=== PATIENT | female | born 1950 | race Caucasian/White ===

== ENCOUNTER → 2017-01-09 | Outpatient (CLI) | payer MEDICARE, BC ==
--- NOTE | 2017-01-10 08:22 | MM ---
Reason for exam: additional evaluation requested from prior study. Last mammogram was performed 4 years and 5 months ago. History: Patient is postmenopausal. Family history of breast cancer in aunt at age 60. Benign left US cyst aspiration of the left breast, July 27, 2006. Taking estrogen for 8 years 5 months beginning at age 50. Physical Findings: Nurse did not find any significant physical abnormalities on exam. MG 3D Diag Mammo W/Cad PASHA Bilateral CC and MLO view(s) were taken. Prior study comparison: July 25, 2012, CAD bilateral diagnostic mammogram. December 30, 2008, bilateral diagnostic digital mammog. The breast tissue is heterogeneously dense. This may lower the sensitivity of mammography. Finding: There are typically benign calcifications in both breasts. Previous mammotome biopsy in the left breast. No significant changes in finding since July 25, 2012 and December 30, 2008. These results were verbally communicated with the patient and result sheet given to the patient on 01/09/17. ASSESSMENT: Benign, BI-RAD 2 RECOMMENDATION: Routine screening mammogram of both breasts in 1 year.
== END | disposition home or self-care (01) ==
LOC: RADMAMWWP 10:33
PROVIDERS: ATTEND Family Medicine
DX: N60.19 Diffuse cystic mastopathy of unspecified breast (principal); Z80.3 Family history of malignant neoplasm of breast; R92.1 Mammographic calcification found on diagnostic imaging of breast
CPT/HCPCS: G0204; G0279

== ENCOUNTER 2017-01-26 11:38 | Emergency (ER) | payer MEDICARE, BC ==
[2017-01-26 11:45] VITALS: RESP 16
[2017-01-26] MEDS ORDERED: RX INFO: IV CONTRAST WAS GIVEN 1 EACH MISC MISCELLANE PRN (12:19)
[2017-01-26] MEDS ORDERED: SODIUM CHLORIDE 0.9% 1,000 ML IV STA (12:19)
--- NOTE | 2017-01-26 12:35 | XR ---
EXAMINATION TYPE: XR chest 2V DATE OF EXAM: 01/26/2017 12:28 PM COMPARISON: 02/21/2011 HISTORY: 66-year-old female with weakness TECHNIQUE: PA and lateral views FINDINGS: The cardiomediastinal silhouette, aorta, and pulmonary vasculature are within normal limits. Strandin g atelectasis in the lower lungs. Otherwise, lungs and pleural spaces are clear. IMPRESSION: Strandy basilar atelectasis. Otherwise, no acute cardiopulmonary process.
[2017-01-26 12:48] LABS: Basophils % (A) 0 %; CHCM 31.9; Eosinophils % (A) 1 %; HCT 46.9 % (34.0-46.0); HDW 2.74; HGB 14.6 gm/dL (11.4-16.0); Luc # (Auto) 0.14; Luc % (Auto) 2; Lymphocytes # (A) 1.7 k/uL (1.0-4.8); Lymphocytes % (A) 30 %; MCH 23.5 pg (25.0-35.0); MCV 75.8 fL (80.0-100.0); Mean Platelet Volume 7.2; Microcytosis Slight; Monocytes # (A) 0.3 k/uL (0-1.0); Monocytes % (A) 6 %; Neutrophils # (A) 3.5 k/uL (1.3-7.7); Neutrophils % (A) 61 %; RBC 6.19 m/uL (3.80-5.40); RDW 15.8 % (11.5-15.5); WBC 5.7 k/uL (3.8-10.6); WBC (Perox) 5.64
[2017-01-26 12:52] LABS: Appearance,Urine Clear (Clear); Bilirubin,Urine Negative (Negative); Glucose,Urine (UA) Negative (Negative); Ketones,Urine Negative (Negative); Leukocyte Esterase,Urine Negative (Negative); Nitrite,Urine Negative (Negative); PH, Urine 5.5 (5.0-8.0); Protein,Urine Negative (Negative); UA Billing (MACRO vs. MICRO) CHEM; Urobilinogen,Urine <2.0 mg/dL (<2.0)
[2017-01-26 13:02] LABS: Partial Thromboplastin Time 24.1 sec (22.0-30.0); Prothrombin Time 10.4 sec (9.0-12.0)
[2017-01-26 13:04] LABS: ALT 33 U/L (9-52); AST 22 U/L (14-36); Alkaline Phosphatase 134 U/L (38-126); Anion Gap 12 mmol/L; Blood Urea Nitrogen 18 mg/dL (7-17); Calcium 10.5 mg/dL (8.4-10.2); Carbon Dioxide 29 mmol/L (22-30); Chloride 100 mmol/L (98-107); Glucose 112 mg/dL (74-99); Non-African American GFR(MDRD) >60 (>60 ml/min/1.73 sqM); Potassium 3.7 mmol/L (3.5-5.1); Sodium 141 mmol/L (137-145); Total Bilirubin 0.5 mg/dL (0.2-1.3); Total Protein 7.6 g/dL (6.3-8.2)
[2017-01-26 13:09] LABS: Creatine Kinase 32 U/L (30-135)
--- NOTE | 2017-01-26 13:17 | ED ---
General Adult HPI - General Chief complaint: Chest Pain Stated complaint: chest pain,weak Time Seen by Provider: 01/26/17 11:53 Source: patient, family, RN notes reviewed, old records reviewed Mode of arrival: wheelchair Limitations: no limitations - History of Present Illness Initial comments: This is a 66-year-old female here for evaluation today. The patient comes in for evaluation of chest pain. Patient states she has history of reflux history of stomach issues irritable bowel and fibromyalgia. Patient states pain is anterior worse when she sits up but does recur. No elbow toms, no shortness of breath the pain does radiate around her back. Patient denies any fevers no cough or congestion. No prior history of similar symptoms, no modifying factors for symptoms at home - Related Data Home Medications Medication Instructions Recorded Confirmed ALPRAZolam [Xanax] 0.25 mg PO TID PRN 01/26/17 01/26/17 Acetaminophen [Tylenol] 325 - 650 mg PO Q4H PRN 01/26/17 01/26/17 Amitriptyline HCl [Elavil] 10 mg PO HS 01/26/17 01/26/17 Atorvastatin [Lipitor] 40 mg PO DAILY 01/26/17 01/26/17 Dicyclomine [Bentyl] 20 mg PO QID PRN 01/26/17 01/26/17 Etodolac [Lodine] 400 mg PO Q12H PRN 01/26/17 01/26/17 Ferrous Sulfate [Feosol] 325 mg PO DAILY 01/26/17 01/26/17 Ibuprofen/Pseudoephedrine HCl 1 - 2 tab PO Q6H PRN 01/26/17 01/26/17 [Advil Cold & Sinus Caplet] Ketotifen Fumarate [Zaditor] 1 drop BOTH EYES BID PRN 01/26/17 01/26/17 Loperamide [Imodium] 2 - 4 mg PO Q8H PRN 01/26/17 01/26/17 Mometasone Furoate [Nasonex Nasal 1 spray EA NOSTRIL DAILY PRN 01/26/17 01/26/17 [place]] Omeprazole [PriLOSEC] 40 mg PO DAILY PRN 01/26/17 01/26/17 Prochlorperazine [Compazine] 5 mg PO BID PRN 01/26/17 01/26/17 Ranitidine HCl [Zantac] 150 mg PO BID PRN 01/26/17 01/26/17 SUMAtriptan SUCCINATE [Imitrex] 50 mg PO Q8H PRN 01/26/17 01/26/17 Simethicone [Phazyme] 250 mg PO Q8H PRN 01/26/17 01/26/17 Valsartan/Hydrochlorothiazide 1 tab PO DAILY 01/26/17 01/26/17 [Diovan Hct 160-12.5 mg Tab] guaiFENesin [Mucinex] 300 mg PO Q12HR PRN 01/26/17 01/26/17 Allergies Allergy/AdvReac Type Severity Reaction Status Date / Time azithromycin Allergy Unknown Verified 01/26/17 12:11 duloxetine [From Cymbalta] Allergy Unknown Verified 01/26/17 12:11 erythromycin base Allergy Unknown Verified 01/26/17 12:11 levofloxacin [From Levaquin] Allergy Unknown Verified 01/26/17 12:11 Penicillins Allergy Unknown Verified 01/26/17 12:11 sulfamethoxazole Allergy Unknown Verified 01/26/17 12:11 [From Bactrim] trimethoprim [From Bactrim] Allergy Unknown Verified 01/26/17 12:11 Review of Systems ROS Statement: Those systems with pertinent positive or pertinent negative responses have been documented in the HPI. ROS Other: All systems not noted in ROS Statement are negative. Past Medical History Past Medical History: Hyperlipidemia, Hypertension History of Any Multi-Drug Resistant Organisms: None Reported Past Surgical History: Section, Cholecystectomy, Hysterectomy Additional Past Surgical History / Comment(s): CARPAL TUNNEL, ACOUSTIC NEUROMA, RECTOCELE, LEFT BREAST BIOPSY Past Psychological History: Anxiety Smoking Status: Never smoker Past Alcohol Use History: None Reported Past Drug Use History: None Reported General Exam Limitations: no limitations General appearance: alert, in no apparent distress Head exam: Present: atraumatic, normocephalic, normal inspection Eye exam: Present: normal appearance, PERRL, EOMI. Absent: scleral icterus, conjunctival injection, periorbital swelling ENT exam: Present: normal exam, mucous membranes moist Neck exam: Present: normal inspection. Absent: tenderness, meningismus, lymphadenopathy Respiratory exam: Present: normal lung sounds bilaterally. Absent: respiratory distress, wheezes, rales, rhonchi, stridor Cardiovascular Exam: Present: normal rhythm, tachycardia, normal heart sounds. Absent: systolic murmur, diastolic murmur, rubs, gallop, clicks GI/Abdominal exam: Present: soft, normal bowel sounds. Absent: distended, tenderness, guarding, rebound, rigid Extremities exam: Present: normal inspection, full ROM, normal capillary refill. Absent: tenderness, pedal edema, joint swelling, calf tenderness Back exam: Present: normal inspection Neurological exam: Present: alert, oriented X3, CN II-XII intact Psychiatric exam: Present: normal affect, normal mood Skin exam: Present: warm, dry, intact, normal color. Absent: rash Course Vital Signs 01/26/17 01/26/17 01/26/17 11:41 13:57 15:22 Temperature 98 F 98.1 F 97.8 F Pulse Rate 131 H 97 91 Respiratory 16 16 16 Rate Blood Pressure 175/92 172/83 141/79 O2 Sat by Pulse 100 96 98 Oximetry - Reevaluation(s) Reevaluation #1: 01/26/17 13:17 Prior cardiac workup evaluated, negative Patient is relatively asymptomatic Medical Decision Making - Medical Decision Making 66. The ER with nonspecific chest pain reflux type burning in her abdomen rating to her back. Patient's lab work is normal, EKG and chest x-ray as well as CT chest is negative. Patient has no complaints, will contribute we'll attribute symptoms to reflux and discharged home - Lab Data Result diagrams: 01/26/17 12:05 01/26/17 12:05 Lab Results 01/26/17 01/26/17 01/26/17 Range/Units 12:05 12:05 12:05 WBC 5.7 (3.8-10.6) k/uL RBC 6.19 H (3.80-5.40) m/uL Hgb 14.6 (11.4-16.0) gm/dL Hct 46.9 H (34.0-46.0) % MCV 75.8 L (80.0-100.0) fL MCH 23.5 L (25.0-35.0) pg MCHC 31.0 (31.0-37.0) g/dL RDW 15.8 H (11.5-15.5) % Plt Count 214 (150-450) k/uL Neutrophils % 61 % Lymphocytes % 30 % Monocytes % 6 % Eosinophils % 1 % Basophils % 0 % Neutrophils # 3.5 (1.3-7.7) k/uL Lymphocytes # 1.7 (1.0-4.8) k/uL Monocytes # 0.3 (0-1.0) k/uL Eosinophils # 0.0 (0-0.7) k/uL Basophils # 0.0 (0-0.2) k/uL Microcytosis Slight PT (9.0-12.0) sec INR (<1.1) APTT (22.0-30.0) sec D-Dimer (<0.60) mg/L FEU Sodium 141 (137-145) mmol/L Potassium 3.7 (3.5-5.1) mmol/L Chloride 100 (98-107) mmol/L Carbon Dioxide 29 (22-30) mmol/L Anion Gap 12 mmol/L BUN 18 H (7-17) mg/dL Creatinine 0.69 (0.52-1.04) mg/dL Est GFR (MDRD) Af Amer >60 (>60 ml/min/1.73 sqM) Est GFR (MDRD) Non-Af >60 (>60 ml/min/1.73 sqM) Glucose 112 H (74-99) mg/dL Calcium 10.5 H (8.4-10.2) mg/dL Phosphorus 3.0 (2.5-4.5) mg/dL Magnesium 2.0 (1.6-2.3) mg/dL Total Bilirubin 0.5 (0.2-1.3) mg/dL AST 22 (14-36) U/L ALT 33 (9-52) U/L Alkaline Phosphatase 134 H (38-126) U/L Total Creatine Kinase 32 (30-135) U/L CK-MB (CK-2) 0.5 (0.0-2.4) ng/mL CK-MB (CK-2) Rel Index 1.6 Troponin I <0.012 (0.000-0.034) ng/mL Total Protein 7.6 (6.3-8.2) g/dL Albumin 4.6 (3.5-5.0) g/dL Lipase 49 (23-300) U/L TSH 1.480 (0.465-4.680) mIU/L Urine Color Urine Appearance (Clear) Urine pH (5.0-8.0) Ur Specific Nelson (1.001-1.035) Urine Protein (Negative) Urine Glucose (UA) (Negative) Urine Ketones (Negative) Urine Blood (Negative) Urine Nitrite (Negative) Urine Bilirubin (Negative) Urine Urobilinogen (<2.0) mg/dL Ur Leukocyte Esterase (Negative) 01/26/17 01/26/17 Range/Units 12:05 12:05 WBC (3.8-10.6) k/uL RBC (3.80-5.40) m/uL Hgb (11.4-16.0) gm/dL Hct (34.0-46.0) % MCV (80.0-100.0) fL MCH (25.0-35.0) pg MCHC (31.0-37.0) g/dL RDW (11.5-15.5) % Plt Count (150-450) k/uL Neutrophils % % Lymphocytes % % Monocytes % % Eosinophils % % Basophils % % Neutrophils # (1.3-7.7) k/uL Lymphocytes # (1.0-4.8) k/uL Monocytes # (0-1.0) k/uL Eosinophils # (0-0.7) k/uL Basophils # (0-0.2) k/uL Microcytosis PT 10.4 (9.0-12.0) sec INR 1.0 (<1.1) APTT 24.1 (22.0-30.0) sec D-Dimer 0.20 (<0.60) mg/L FEU Sodium (137-145) mmol/L Potassium (3.5-5.1) mmol/L Chloride (98-107) mmol/L Carbon Dioxide (22-30) mmol/L Anion Gap mmol/L BUN (7-17) mg/dL Creatinine (0.52-1.04) mg/dL Est GFR (MDRD) Af Amer (>60 ml/min/1.73 sqM) Est GFR (MDRD) Non-Af (>60 ml/min/1.73 sqM) Glucose (74-99) mg/dL Calcium (8.4-10.2) mg/dL Phosphorus (2.5-4.5) mg/dL Magnesium (1.6-2.3) mg/dL Total Bilirubin (0.2-1.3) mg/dL AST (14-36) U/L ALT (9-52) U/L Alkaline Phosphatase (38-126) U/L Total Creatine Kinase (30-135) U/L CK-MB (CK-2) (0.0-2.4) ng/mL CK-MB (CK-2) Rel Index Troponin I (0.000-0.034) ng/mL Total Protein (6.3-8.2) g/dL Albumin (3.5-5.0) g/dL Lipase (23-300) U/L TSH (0.465-4.680) mIU/L Urine Color Light Yellow Urine Appearance Clear (Clear) Urine pH 5.5 (5.0-8.0) Ur Specific Nelson 1.010 (1.001-1.035) Urine Protein Negative (Negative) Urine Glucose (UA) Negative (Negative) Urine Ketones Negative (Negative) Urine Blood Negative (Negative) Urine Nitrite Negative (Negative) Urine Bilirubin Negative (Negative) Urine Urobilinogen <2.0 (<2.0) mg/dL Ur Leukocyte Esterase Negative (Negative) - Radiology Data Radiology results: report reviewed, image reviewed Disposition Clinical Impression: Chest pain, GERD (gastroesophageal reflux disease) Disposition: HOME SELF-CARE Condition: Good Instructions: Chest Pain (ED), Gastroesophageal Reflux Disease (ED) Referrals: Maurice Vega DO [Primary Care Provider] - 1-2 days
[2017-01-26 13:22] LABS: Creatine Kinase MB 0.5 ng/mL (0.0-2.4); Troponin I <0.012 ng/mL (0.000-0.034)
--- NOTE | 2017-01-26 14:43 | CT ---
EXAMINATION TYPE: CT angio chest DATE OF EXAM: 01/26/2017 2:22 PM COMPARISON: NONE HISTORY: 66-year-old female with chest pain TECHNIQUE: Contiguous axial scanning of the chest performed with IV Contrast, patient injected with 1 00 mL of Omnipaque 350. Coronal/sagittal MIP reconstructions performed. CT DLP: 199 mGycm Automated exposure control for dose reduction was used. FINDINGS: The heart is normal size without pericardial effusion. Mild coronary vessel calcifications are presen t. Aorta is normal caliber with conventional arch vessel branching anatomy. Nonenlarged mediastinal lymph nodes. No thoracic lymphadenopathy by CT size criteria. There is borderline adequate opacification of the pulmonary artery system. In addition, there is biba silar respiratory motion especially at the left base. No large central or lobar pulmonary embolus. No segmental embolus seen within the upper midlungs. Strandy atelectasis at the inferior lingula and also at the basilar left lower lobe and also in the m edial right middle lobe. No consolidation or pleural effusion. Visualized upper abdomen shows cholecystectomy clips without gross abnormality. Bones: Mild endplate spondylosis midthoracic spine. No osseous destructive process. IMPRESSION: 1. BORDERLINE ADEQUATE OPACIFICATION OF THE PULMONARY ARTERIAL SYSTEM. ADDITIONAL BIBASILAR RESPIRATO RY MOTION. NO LARGE CENTRAL OR LOBAR PULMONARY EMBOLUS AND NO EMBOLUS TO THE SEGMENTAL LEVEL WITHIN T HE UPPER AND MIDLUNGS. ASSESSMENT FOR EMBOLI WITHIN SEGMENTAL AND MORE DISTAL ARTERIAL BRANCHES ESPEC IALLY AT THE LEFT BASE IS SUBOPTIMAL. 2. STRANDY AREAS OF ATELECTASIS WITHOUT ACUTE PULMONARY PROCESS SEEN.
[2017-01-26 15:23] VITALS: BP 141/79; PULSE 91; TEMP 97.8
== END 2017-01-26 15:22 | disposition home or self-care (01) ==
LOC: EC 11:38
DX: R07.9 Chest pain, unspecified (principal); K21.9 Gastro-esophageal reflux disease without esophagitis; K58.9 Irritable bowel syndrome, unspecified; I10 Essential (primary) hypertension; F41.9 Anxiety disorder, unspecified; E78.5 Hyperlipidemia, unspecified; M79.7 Fibromyalgia; Z79.899 Other long term (current) drug therapy; Z88.0 Allergy status to penicillin; Z88.1 Allergy status to other antibiotic agents; Z88.8 Allergy status to other drugs, medicaments and biological substances
CPT/HCPCS: 99285; 96360; 36415; 85379; 80053; 82550; 82553; 83690; 83735; 84100; 84443; 84484; 85025; 85610; 85730; 81003; 71020; 71275; Q9967; 93005

== ENCOUNTER → 2018-05-14 | Outpatient (CLI) | payer MEDICARE, BC ==
--- NOTE | 2018-05-15 14:15 | MM ---
Reason for exam: screening (asymptomatic). Last mammogram was performed 1 year and 4 months ago. History: Patient is postmenopausal. Family history of breast cancer in aunt at age 60. Benign left US cyst aspiration of the left breast, July 27, 2006. Taking estrogen for 8 years 5 months beginning at age 50. Physical Findings: A clinical breast exam by your physician is recommended on an annual basis and results should be correlated with mammographic findings. MG 3D Screening Mammo W/Cad Bilateral CC and MLO view(s) were taken. Prior study comparison: January 09, 2017, bilateral MG 3d diag mammo w/cad PASHA. July 25, 2012, CAD bilateral diagnostic mammogram. The breast tissue is heterogeneously dense. This may lower the sensitivity of mammography. There is a right upper outer quadrant 4mm mass 7-8cm from nipple. There are three grouped upper inner quadrant right posterior depth new calcifications. No suspicious abnormality in the left breast. Left biopsy marker noted. ASSESSMENT: Incomplete: need additional imaging evaluation, BI-RAD 0 RECOMMENDATION: Special view mammogram of the right breast. If lesion persists on supplemental views, image directed ultrasound is recommended. [facility] will attempt to contact patient to return for supplemental views and ultrasound if indicated.
== END | disposition home or self-care (01) ==
LOC: RADMAMWWP 16:32
PROVIDERS: ATTEND Family Medicine
DX: Z12.31 Encounter for screening mammogram for malignant neoplasm of breast (principal)
CPT/HCPCS: 77063; 77067

== ENCOUNTER → 2018-05-17 | Outpatient (CLI) | payer MEDICARE, BC ==
--- NOTE | 2018-05-21 08:02 | MM ---
Reason for exam: additional evaluation requested from abnormal screening. Last mammogram was performed less than 1 month ago. History: Patient is postmenopausal. Family history of breast cancer in aunt at age 60. Benign left US cyst aspiration of the left breast, July 27, 2006. Taking estrogen for 8 years 5 months beginning at age 50. Physical Findings: Nurse did not find any significant physical abnormalities on exam. MG 3D Work Up W/Cad RT CC and MLO view(s) were taken of the right breast. Technologist: Oriana Nagy, RT (R)(M) Prior study comparison: May 14, 2018, bilateral MG 3d screening mammo w/cad. January 09, 2017, bilateral MG 3d diag mammo w/cad PASHA. The breast tissue is heterogeneously dense. This may lower the sensitivity of mammography. 8mm nodule 10 o'clock left breast persists. It is circumscribed and oval. A second 7mm nodule appears to be present just adjacent. The 1 o'clock calcification posterior depth are punctate with only 3 calcifications demonstrated. These results were verbally communicated with the patient and result sheet given to the patient on 05/17/18. ASSESSMENT: Incomplete: need additional imaging evaluation, BI-RAD 0 RECOMMENDATION: Ultrasound of the right breast. (upper outer quadrant)
--- NOTE | 2018-05-21 08:04 | USB ---
Reason for exam: additional evaluation requested from abnormal screening. History: Patient is postmenopausal. Family history of breast cancer in aunt at age 60. Benign left US cyst aspiration of the left breast, July 27, 2006. Taking estrogen for 8 years 5 months beginning at age 50. US Breast Workup Limited RT Right limited breast ultrasound including focal area of concern, retroareolar and axilla demonstrates a 5 x 2 x 3mm oval, hypoechoic and circumscribed lesion at 10 o'clock. Given overall benign characteristics, 6 month follow up recommended for both this 10 o'clock lesion and the upper inner quadrant punctate calcifications. These results were verbally communicated with the patient and result sheet given to the patient on 05/17/18. ASSESSMENT: Probably benign, BI-RAD 3 RECOMMENDATION: Follow-up diagnostic mammogram and ultrasound of the right breast in 6 months.
== END | disposition home or self-care (01) ==
LOC: RADMAMWWP 12:35
PROVIDERS: ATTEND Family Medicine
DX: R92.8 Other abnormal and inconclusive findings on diagnostic imaging of breast (principal)
CPT/HCPCS: 77065; 76642; G0279; 77061

== ENCOUNTER → 2018-11-20 | Outpatient (CLI) | payer MEDICARE, BC ==
--- NOTE | 2018-11-22 17:23 | MM ---
Reason for exam: follow-up at short interval from prior study. Last mammogram was performed 6 months ago. History: Patient is postmenopausal. Family history of breast cancer in aunt at age 60 and premenopausal breast cancer in cousin at age 45. Benign left US cyst aspiration of the left breast, July 27, 2006. Took estrogen for 5 years 5 months beginning at age 50. Physical Findings: Nurse did not find any significant physical abnormalities on exam. MG 3D Diag Mammo W/Cad RT CC and MLO view(s) were taken of the right breast. Prior study comparison: May 17, 2018, right breast MG 3d work up w/cad RT. May 14, 2018, bilateral MG 3d screening mammo w/cad. The breast tissue is heterogeneously dense. This may lower the sensitivity of mammography. Right breast upper outer quadrant nodularity is unchanged for 6 months. Previous ultrasound is reviewed. A small group of 3 punctate calcifications in the upper inner quadrant is also stable for 6 months. These results were verbally communicated with the patient and result sheet given to the patient on 11/20/18. ASSESSMENT: Probably benign, BI-RAD 3 RECOMMENDATION: Follow-up diagnostic mammogram of both breasts in 6 months.
== END ==
LOC: RADMAMWWP 10:48
PROVIDERS: ATTEND Family Medicine
DX: R92.8 Other abnormal and inconclusive findings on diagnostic imaging of breast (principal)
CPT/HCPCS: 77065; G0279; 77061

== ENCOUNTER 2018-12-11 08:04 | Emergency (ER) | payer MEDICARE, BC ==
[2018-12-11 08:18] VITALS: TEMP 98.7
[2018-12-11] MEDS ORDERED: SODIUM CHLORIDE 0.9% 1,000 ML IV STA ×3 (08:23→08:47)
[2018-12-11] MEDS ORDERED: METOPROLOL TARTRATE 5 MG/5 ML VIAL IVP STA (08:23)
--- NOTE | 2018-12-11 08:47 | ED ---
General Adult HPI - General Chief complaint: Chest Pain Stated complaint: CHEST PAIN, BACK PAIN, NAUSEA Time Seen by Provider: 12/11/18 08:23 Source: patient, RN notes reviewed Mode of arrival: wheelchair Limitations: no limitations - History of Present Illness Initial comments: This is a 68-year-old female who presents with multiple complaints. She states she's had diarrhea since this past Madhu. She states she had flu symptoms and over the past 2 weeks that sinus infection she now complains of feeling weak and tired she's had diarrhea a lot recently. She has any history of hypokalemia. She states she's been having postnasal drip now with cough now she has sharp midsternal chest pain gets worse with deep breathing and coughing. She generally feels weak. She did recently see her bottomer operator who put her on fiber pills she states the pain is gotten worse as well as diarrhea is gotten worse. She denies any fevers chills nausea vomiting overt sweats. She is chills generally rundown. - Related Data Home Medications Medication Instructions Recorded Confirmed ALPRAZolam [Xanax] 0.25 mg PO TID PRN 01/26/17 12/11/18 Atorvastatin [Lipitor] 40 mg PO DAILY 01/26/17 12/11/18 Dicyclomine [Bentyl] 20 mg PO QID 01/26/17 12/11/18 Prochlorperazine [Compazine] 5 mg PO BID 01/26/17 12/11/18 Valsartan/Hydrochlorothiazide 1 tab PO DAILY 01/26/17 12/11/18 [Diovan Hct 160-12.5 mg Tab] Amitriptyline HCl 25 mg PO HS 12/11/18 12/11/18 Omeprazole 20 mg PO DAILY 12/11/18 12/11/18 Allergies Allergy/AdvReac Type Severity Reaction Status Date / Time azithromycin Allergy Unknown Verified 12/11/18 10:37 duloxetine [From Cymbalta] Allergy Unknown Verified 12/11/18 10:37 erythromycin base Allergy Unknown Verified 12/11/18 10:37 levofloxacin [From Levaquin] Allergy Unknown Verified 12/11/18 10:37 Penicillins Allergy Unknown Verified 12/11/18 10:37 sulfamethoxazole Allergy Unknown Verified 12/11/18 10:37 [From Bactrim] trimethoprim [From Bactrim] Allergy Unknown Verified 12/11/18 10:37 Review of Systems ROS Statement: Those systems with pertinent positive or pertinent negative responses have been documented in the HPI. ROS Other: All systems not noted in ROS Statement are negative. Past Medical History Past Medical History: Hyperlipidemia, Hypertension History of Any Multi-Drug Resistant Organisms: None Reported Past Surgical History: Section, Cholecystectomy, Hysterectomy Additional Past Surgical History / Comment(s): CARPAL TUNNEL, ACOUSTIC NEUROMA, RECTOCELE, LEFT BREAST BIOPSY Past Psychological History: Anxiety Smoking Status: Never smoker Past Alcohol Use History: None Reported Past Drug Use History: None Reported General Exam - General Exam Comments Initial Comments: Is a well-developed well-nourished awake alert oriented 3 female Limitations: no limitations General appearance: alert, in no apparent distress Head exam: Present: atraumatic, normocephalic, normal inspection Eye exam: Present: normal appearance, PERRL, EOMI. Absent: scleral icterus, conjunctival injection, periorbital swelling ENT exam: Present: mucous membranes dry Neck exam: Present: normal inspection. Absent: tenderness, meningismus, lymphadenopathy Respiratory exam: Present: normal lung sounds bilaterally. Absent: respiratory distress, wheezes, rales, rhonchi, stridor Cardiovascular Exam: Present: normal rhythm, tachycardia, normal heart sounds. Absent: systolic murmur, diastolic murmur, rubs, gallop, clicks GI/Abdominal exam: Present: soft, normal bowel sounds. Absent: distended, tenderness, guarding, rebound, rigid, bruit, pulsatile mass Extremities exam: Present: normal inspection, full ROM, normal capillary refill. Absent: tenderness, pedal edema, joint swelling, calf tenderness Back exam: Present: normal inspection Neurological exam: Present: alert, oriented X3, CN II-XII intact Psychiatric exam: Present: normal affect, normal mood Skin exam: Present: warm, dry, intact, normal color. Absent: rash Course Vital Signs 12/11/18 12/11/18 12/11/18 08:13 09:40 10:00 Temperature 98.7 F Pulse Rate 133 H 93 92 Respiratory 18 19 7 L Rate Blood Pressure 167/95 149/91 149/91 O2 Sat by Pulse 95 94 L 94 L Oximetry 12/11/18 12/11/18 10:30 11:00 Temperature Pulse Rate 87 92 Respiratory 11 L 9 L Rate Blood Pressure 155/92 145/84 O2 Sat by Pulse 94 L 94 L Oximetry - Reevaluation(s) Reevaluation #1: 12/11/18 11:55 I did evaluate the patient she does present with complaints at this time of left arm pain at the IV site does appear to be gone subcutaneous. EKG Findings - EKG Results: EKG: interpreted by KURTISD, sinus rhythm (Sinus tachycardia rate of 103 OK interval 158 QRS duration 90 QT since QTC 320/419 muscle left atrial enlargement and incomplete right bundle-branch block nonspecific T-wave configuration possible RVH) Medical Decision Making - Medical Decision Making Patient is showing improved with respect to her status she was able get some fluids and not. Lab work and x-rays are unremarkable presentation is consistent with viral depletion. The patient did have problems with her peripheral IV in the left upper extremity she has elected to be discharged and will go home and push oral fluids instead. This is reasonable at this time. - Lab Data Result diagrams: 12/11/18 09:15 12/11/18 09:15 Lab Results 12/11/18 12/11/18 12/11/18 Range/Units 09:15 09:15 09:15 WBC 5.0 (3.8-10.6) k/uL RBC 5.84 H (3.80-5.40) m/uL Hgb 15.1 (11.4-16.0) gm/dL Hct 46.5 H (34.0-46.0) % MCV 79.6 L (80.0-100.0) fL MCH 25.9 (25.0-35.0) pg MCHC 32.5 (31.0-37.0) g/dL RDW 14.0 (11.5-15.5) % Plt Count 187 (150-450) k/uL Neutrophils % 62 % Lymphocytes % 28 % Monocytes % 6 % Eosinophils % 2 % Basophils % 1 % Neutrophils # 3.1 (1.3-7.7) k/uL Lymphocytes # 1.4 (1.0-4.8) k/uL Monocytes # 0.3 (0-1.0) k/uL Eosinophils # 0.1 (0-0.7) k/uL Basophils # 0.0 (0-0.2) k/uL PT (9.0-12.0) sec INR (<1.2) APTT (22.0-30.0) sec D-Dimer (<0.60) mg/L FEU Sodium 142 (137-145) mmol/L Potassium 4.4 (3.5-5.1) mmol/L Chloride 103 (98-107) mmol/L Carbon Dioxide 32 H (22-30) mmol/L Anion Gap 7 mmol/L BUN 19 H (7-17) mg/dL Creatinine 0.63 (0.52-1.04) mg/dL Est GFR (CKD-EPI)AfAm >90 (>60 ml/min/1.73 sqM) Est GFR (CKD-EPI)NonAf >90 (>60 ml/min/1.73 sqM) Glucose 116 H (74-99) mg/dL Calcium 10.5 H (8.4-10.2) mg/dL Magnesium 2.0 (1.6-2.3) mg/dL Total Bilirubin 0.4 (0.2-1.3) mg/dL AST 27 (14-36) U/L ALT 34 (9-52) U/L Alkaline Phosphatase 114 (38-126) U/L Total Creatine Kinase 42 (30-135) U/L CK-MB (CK-2) 0.7 (0.0-2.4) ng/mL CK-MB (CK-2) Rel Index 1.7 Troponin I <0.012 (0.000-0.034) ng/mL Total Protein 6.9 (6.3-8.2) g/dL Albumin 4.4 (3.5-5.0) g/dL Amylase <30 L (30-110) U/L Lipase 47 (23-300) U/L 12/11/18 Range/Units 09:15 WBC (3.8-10.6) k/uL RBC (3.80-5.40) m/uL Hgb (11.4-16.0) gm/dL Hct (34.0-46.0) % MCV (80.0-100.0) fL MCH (25.0-35.0) pg MCHC (31.0-37.0) g/dL RDW (11.5-15.5) % Plt Count (150-450) k/uL Neutrophils % % Lymphocytes % % Monocytes % % Eosinophils % % Basophils % % Neutrophils # (1.3-7.7) k/uL Lymphocytes # (1.0-4.8) k/uL Monocytes # (0-1.0) k/uL Eosinophils # (0-0.7) k/uL Basophils # (0-0.2) k/uL PT 9.9 (9.0-12.0) sec INR 0.9 (<1.2) APTT 22.2 (22.0-30.0) sec D-Dimer 0.21 (<0.60) mg/L FEU Sodium (137-145) mmol/L Potassium (3.5-5.1) mmol/L Chloride (98-107) mmol/L Carbon Dioxide (22-30) mmol/L Anion Gap mmol/L BUN (7-17) mg/dL Creatinine (0.52-1.04) mg/dL Est GFR (CKD-EPI)AfAm (>60 ml/min/1.73 sqM) Est GFR (CKD-EPI)NonAf (>60 ml/min/1.73 sqM) Glucose (74-99) mg/dL Calcium (8.4-10.2) mg/dL Magnesium (1.6-2.3) mg/dL Total Bilirubin (0.2-1.3) mg/dL AST (14-36) U/L ALT (9-52) U/L Alkaline Phosphatase (38-126) U/L Total Creatine Kinase (30-135) U/L CK-MB (CK-2) (0.0-2.4) ng/mL CK-MB (CK-2) Rel Index Troponin I (0.000-0.034) ng/mL Total Protein (6.3-8.2) g/dL Albumin (3.5-5.0) g/dL Amylase (30-110) U/L Lipase (23-300) U/L - Radiology Data Radiology results: report reviewed (I did review the imaging and report no acute findings.), image reviewed Disposition Clinical Impression: Dehydration Disposition: HOME SELF-CARE Condition: Good Instructions (If sedation given, give patient instructions): Dehydration (ED) Is patient prescribed a controlled substance at d/c from ED?: No Referrals: Maurice Vega DO [Primary Care Provider] - 1-2 days
[2018-12-11 09:39] LABS: Basophils % (A) 1 %; Eosinophils # (A) 0.1 k/uL (0-0.7); Eosinophils % (A) 2 %; HCT 46.5 % (34.0-46.0); HGB 15.1 gm/dL (11.4-16.0); Lymphocytes # (A) 1.4 k/uL (1.0-4.8); Lymphocytes % (A) 28 %; MCH 25.9 pg (25.0-35.0); MCHC 32.5 g/dL (31.0-37.0); MCV 79.6 fL (80.0-100.0); Mean Platelet Volume 7.1; Monocytes # (A) 0.3 k/uL (0-1.0); Monocytes % (A) 6 %; Neutrophils # (A) 3.1 k/uL (1.3-7.7); Neutrophils % (A) 62 %; Platelet Count 187 k/uL (150-450); RBC 5.84 m/uL (3.80-5.40)
--- NOTE | 2018-12-11 09:52 | XR ---
EXAMINATION TYPE: XR chest 2V DATE OF EXAM: 12/11/2018 COMPARISON: 01/26/2017 HISTORY: Shortness of breath TECHNIQUE: Frontal and lateral views of the chest are obtained. FINDINGS: Scattered senescent parenchymal changes noted. Hyperinflation compatible with COPD. No evidence for infiltrate. No evidence for atelectasis. Heart size is stable. Mediastinal structures are stable and grossly unremarkable. No evidence for hilar prominence. Degenerative changes dorsal spine. IMPRESSION: 1. No evidence for acute pulmonary disease.
[2018-12-11 09:53] LABS: D-Dimer 0.21 mg/L FEU (<0.60); INR 0.9 (<1.2); Partial Thromboplastin Time 22.2 sec (22.0-30.0); Prothrombin Time 9.9 sec (9.0-12.0)
[2018-12-11 09:57] LABS: ALT 34 U/L (9-52); AST 27 U/L (14-36); Albumin 4.4 g/dL (3.5-5.0); Alkaline Phosphatase 114 U/L (38-126); Amylase <30 U/L (30-110); Anion Gap 7 mmol/L; Blood Urea Nitrogen 19 mg/dL (7-17); Calcium 10.5 mg/dL (8.4-10.2); Carbon Dioxide 32 mmol/L (22-30); Chloride 103 mmol/L (98-107); Glucose 116 mg/dL (74-99); Lipase 47 U/L (23-300); Potassium 4.4 mmol/L (3.5-5.1); Sodium 142 mmol/L (137-145); Total Bilirubin 0.4 mg/dL (0.2-1.3); Total Protein 6.9 g/dL (6.3-8.2)
[2018-12-11 10:05] LABS: Creatine Kinase 42 U/L (30-135)
[2018-12-11 10:17] LABS: Creatine Kinase MB 0.7 ng/mL (0.0-2.4); Troponin I <0.012 ng/mL (0.000-0.034)
[2018-12-11] MEDS ORDERED: ACETAMINOPHEN TAB 325 MG TAB PO STA (11:23)
[2018-12-11 11:29] VITALS: BP 145/84; PULSE 92; RESP 9
== END 2018-12-11 12:15 | disposition home or self-care (01) ==
LOC: EC 08:04
DX: E86.0 Dehydration (principal); R00.0 Tachycardia, unspecified; R19.7 Diarrhea, unspecified; R53.1 Weakness; J34.89 Other specified disorders of nose and nasal sinuses; R05 Cough; R07.89 Other chest pain; R68.83 Chills (without fever); E78.5 Hyperlipidemia, unspecified; I10 Essential (primary) hypertension; F41.9 Anxiety disorder, unspecified; Z88.0 Allergy status to penicillin; Z88.1 Allergy status to other antibiotic agents; Z88.2 Allergy status to sulfonamides; Z88.8 Allergy status to other drugs, medicaments and biological substances; Z79.899 Other long term (current) drug therapy; Z90.49 Acquired absence of other specified parts of digestive tract; Z53.8 Procedure and treatment not carried out for other reasons
CPT/HCPCS: 36415; 71046; 80053; 82150; 82550; 82553; 83690; 83735; 84484; 85025; 85379; 85610; 85730; 93005; 96360; 99285

== ENCOUNTER → 2019-05-30 | Outpatient (CLI) | payer MEDICARE, BC ==
--- NOTE | 2019-05-31 08:25 | MM ---
Reason for exam: follow-up at short interval from prior study. Last mammogram was performed 6 months ago. History: Patient is postmenopausal. Family history of breast cancer in aunt at age 60 and premenopausal breast cancer in cousin at age 45. Benign left US cyst aspiration of the left breast, July 27, 2006. Took estrogen for 5 years 5 months beginning at age 50. Physical Findings: Nurse did not find any significant physical abnormalities on exam. MG 3D Diag Mammo W/Cad PASHA Bilateral CC and MLO view(s) were taken. Prior study comparison: November 20, 2018, right breast MG 3d diag mammo w/cad RT. May 17, 2018, right breast MG 3d work up w/cad RT. The breast tissue is heterogeneously dense. This may lower the sensitivity of mammography. There are benign appearing round calcifications bilaterally, greater in the left breast. Stable grouped calcifications in the right breast. Previous mammotome biopsy in the left breast. There is no discrete abnormality. These results were verbally communicated with the patient and result sheet given to the patient on 05/30/19. ASSESSMENT: Benign, BI-RAD 2 RECOMMENDATION: Routine screening mammogram of both breasts in 1 year.
== END | disposition home or self-care (01) ==
LOC: RADMAMWWP 15:23
PROVIDERS: ATTEND Family Medicine
DX: R92.0 Mammographic microcalcification found on diagnostic imaging of breast (principal)
CPT/HCPCS: 77066; G0279; 77062

== ENCOUNTER → 2020-04-14 | Outpatient (CLI) | payer MEDICARE, BC ==
--- NOTE | 2020-04-14 14:54 | US ---
EXAMINATION TYPE: US thyroid st tissue head/neck DATE OF EXAM: 04/14/2020 COMPARISON: NONE CLINICAL HISTORY: E21.3 Hyperparathyroidism. GLAND SIZE: Right Lobe: 5.7 x 1.6 x 1.7 cm Overall Parenchyma: homogenous Left Lobe: 1.8 x 0.4 x 0.8 cm Overall Parenchyma: homogeneous Isthmus Thickness: 0.4 cm NODULES RIGHT: # of nodules measured on right: 1 1. 0.7 X 0.4 x 0.6 cm hypoechoic solid nodule at the mid pole with well-defined margins. No Prior size LEFT: # of nodules measured on left: 0 ISTHMUS: # of nodules measured in the isthmus: 0 Parathyroid area scanned, no obvious abnormality. Bilateral neck scanned, no evidence of lymphadenopathy. IMPRESSION: No suspicious sonographic abnormality in the region of the parathyroid glands. Nuclear me dicine parathyroid uptake scan could be performed for further evaluation. Solitary subcentimeter righ t thyroid nodule is seen for which follow-up thyroid ultrasound in 12 months to establish stability.
== END | disposition home or self-care (01) ==
LOC: RADUSWWP 14:03
PROVIDERS: ATTEND Family Medicine
DX: E04.1 Nontoxic single thyroid nodule (principal)
CPT/HCPCS: 76536

== ENCOUNTER → 2020-08-20 | Outpatient (CLI) | payer MEDICARE, BC ==
--- NOTE | 2020-08-20 14:06 | MM ---
Reason for exam: additional evaluation requested from prior study. Last mammogram was performed 1 year and 3 months ago. History: Patient is postmenopausal. Family history of breast cancer in aunt at age 60 and premenopausal breast cancer in cousin at age 45. Benign left US cyst aspiration of the left breast, July 27, 2006. Took estrogen for 5 years 5 months beginning at age 50. Physical Findings: Nurse did not find any significant physical abnormalities on exam. MG 3D Diag Mammo W/Cad PASHA Bilateral CC and MLO view(s) were taken. Prior study comparison: May 30, 2019, bilateral MG 3d diag mammo w/cad PASHA. November 20, 2018, right breast MG 3d diag mammo w/cad RT. The breast tissue is heterogeneously dense. This may lower the sensitivity of mammography. Finding: There are 4-5 intermediate concern, suspicious regional calcifications in the upper inner quadrant of the right breast. Previous mammotome biopsy in the left breast. New finding and increase in number of calcifications since May 30, 2019 and November 20, 2018. These results were verbally communicated with the patient and result sheet given to the patient on 08/20/20. ASSESSMENT: Suspicious, BI-RAD 4 RECOMMENDATION: Stereotactic core biopsy of the right breast. Called Dr. Davila's office with mammographic findings and has scheduled an appointment for the patient for 09/10/20 at 3:[address] Rogers. PRELIMINARY REPORT CALLED AND FAXED TO DR. ROGERS ON 08/20/20.
== END | disposition home or self-care (01) ==
LOC: RADMAMWWP 12:37
PROVIDERS: ATTEND Family Medicine
DX: R92.0 Mammographic microcalcification found on diagnostic imaging of breast (principal)
CPT/HCPCS: 77066; G0279; 77062

== ENCOUNTER → 2020-10-27 | Day surgery (SDC) | payer MEDICARE, BC ==
[2020-10-23 10:04] VITALS: BMI 23.8
[~2020-10-27] MED LIST: ACETAMINOPHEN TAB 325 MG TAB ONE; ALPRAZolam 0.25 MG TAB PO PRN; ALPRAZolam 0.5 MG TAB PO PRN; ASPIRIN 325 MG TAB PO STA; ASPIRIN 81 MG PO SCH; ATORVASTATIN 40 MG TAB PO SCH; ERGOCALCIFEROL 50,000 UNIT CAP PO SCH; HEPARIN SODIUM 1,000 UN/ML (10ML VL) IV ONE; HEPARIN SODIUM 1,000 UN/ML (10ML VL) ONE; IOPAMIDOL-370 125ML BTL INJ ONE; LIDOCAINE 1% INJ 10MG/ML (10 ML MDV) SQ ONE; LIDOCAINE 1% INJ 10MG/ML (20 ML MDV) ONE; MIDAZOLAM 2 MG/2 ML VIAL IV ONE; NITROGLYCERIN SL TABS 0.4 MG TAB SUBLINGUAL PRN; NON FORMULARY DRUG (Brimonidine Tartrate/Timolol [Combigan 0.2%-0.5% Eye Drops] 5 ML Drops BOTH EYES SCH; ONDANSETRON 4 MG/2 ML VIAL ONE; PANTOPRAZOLE 40 MG TABLET PO PRN; PROCHLORPERAZINE 5 MG TAB PO PRN; RX INFO: IV CONTRAST WAS GIVEN 1 EACH MISC MISCELLANE PRN; SODIUM CHLORIDE 0.9% 1,000 ML IV SCH; SODIUM CHLORIDE 0.9% 1,000 ML in EMPTY BAG 1 BAG IV ONE; VALSARTAN 160 MG TAB PO SCH; VERAPAMIL 2.5 MG/ML 2 ML AMP ONE; VERAPAMIL SYRINGE (5 MG/10 ML) INTRAARTER ONE; amLODIPine 5 MG TAB PO SCH; cycloSPORINE 0.05% OPHTH 0.4 ML DROPERETTE BOTH EYES SCH; fentaNYL (PF) 50 MCG/ML 2 ML AMP IV ONE; fentaNYL (PF) 50 MCG/ML 2 ML AMP ONE; hydroCHLOROthiazide 12.5 MG CAP PO SCH
[2020-10-27 07:18] VITALS: RESP 18; TEMP 98.5
--- NOTE | 2020-10-27 09:11 | CC ---
CARDIAC CATHETERIZATION REPORT PROCEDURE PERFORMED: Cardiac catheterization. HISTORY OF PRESENT ILLNESS: Mrs. Coleman is a 69-year-old female with a history of hypertension, hyperlipidemia, who has been complaining of episodes of chest discomfort. She underwent myocardial perfusion imaging that revealed evidence of inducible ischemia involving the anterior wall. In view of that, recommendation was made regarding cardiac catheterization. The procedures, risks, and complication were discussed with the patient who is in full understanding and agreement. PROCEDURE: Patient was brought to the electroplating laborer in the fasting semi-sedated state after receiving fentanyl and Benadryl and achieving moderate conscious sedated state. Using Xylocaine anesthesia and Seldinger technique, a 6-British sheath was introduced in the right radial artery. Selective right and left coronary angiography was performed was using 5- British 3.5 bend right and left Olivia catheters. Multiple views of the coronary artery including hemiaxial views were obtained. Following that, the right Olivia was used to cross the aortic valve. Left ventricular end-diastolic pressure was calculated. Following that the catheter and sheath were removed. Hemostasis was obtained with deployment of a TR band. There was no immediate complication. Patient was returned to her room in stable condition. Of note, the patient received 3500 units of intravenous heparin as well as intra-arterial verapamil. FINDINGS: Left main: This is a short size vessel, bifurcating into left circumflex, left anterior descending artery. Left main coronary artery has no evidence of high-grade stenosis. Left anterior descending artery: This is a large-sized vessel reaching toward the apex with a wraparound apex segment feeding the inferoapical wall. The left anterior descending artery gives rise to a small diagonal branch and the LAD has a 10% plaque in the mid segment. The rest of the vessel has no high-grade stenosis. Left circumflex: This is a nondominant small sized vessel, giving rise to 1 obtuse marginal branch of large caliber. The left circumflex as well as branches have no evidence of significant obstructive coronary artery disease. There is mild intimal plaque in the obtuse marginal branch. Right coronary artery: This is a dominant vessel large in caliber bifurcating. The PDA and posterolateral segment branches has a posterior takeoff. The right coronary artery as well as branches have no evidence of obstructive coronary artery disease. LEFT VENTRICULOGRAM: Left ventriculogram was not performed. HEMODYNAMICS: There was no gradient across the aortic valve. The left ventricle end-diastolic pressure was 8-10 mmHg. CONCLUSION: 1. Mild intimal disease in the LAD and the left circumflex. 2. Normal left ventricular end-diastolic pressure. RECOMMENDATION: In view of findings and anatomy, I recommend continued medical therapy with aggressive risk factor modifications being initiated. Those findings and recommendation were discussed with the patient and her family and they are in full understanding and agreement. Duration of sedation is 13 minutes. MMODL / IJN: [id number] /
--- NOTE | 2020-10-27 09:17 | LTR ---
October 27, 2020 Dr. Davila RE: Camryn Coleman Dear Dr. Davila: I had the opportunity to perform cardiac catheterization on Mrs. Coleman at [facility] on October 27 and a full copy of the procedure note will be forwarded to you. In brief, she was found to have minimal intimal disease involving the LAD and the left circumflex. Based on those findings I recommend continue medical therapy with aggressive risk factor modifications being initiated. Thank you again for allowing me to participate in this patient's personal medical care. Please feel free to call with any questions. MMODL / IJN: [id number] /
[2020-10-27 12:05] VITALS: PULSE 66
[2020-10-27 12:33] VITALS: BP 114/62
== END | disposition home or self-care (01) ==
LOC: CATHCVL 06:35
PROVIDERS: ATTEND Internal Medicine Interventional Cardiology
DX: I25.10 Atherosclerotic heart disease of native coronary artery without angina pectoris (principal); I10 Essential (primary) hypertension; E78.2 Mixed hyperlipidemia; H40.9 Unspecified glaucoma; K58.9 Irritable bowel syndrome, unspecified; M79.7 Fibromyalgia; Z90.49 Acquired absence of other specified parts of digestive tract; Z88.1 Allergy status to other antibiotic agents; Z88.0 Allergy status to penicillin; Z88.2 Allergy status to sulfonamides; Z90.710 Acquired absence of both cervix and uterus; Z98.890 Other specified postprocedural states; Z98.891 History of uterine scar from previous surgery; Z87.891 Personal history of nicotine dependence
CPT/HCPCS: 93458; C1769; C1894; J2250; J3010; J1644; J2001; Q9967

== ENCOUNTER → 2021-09-01 | Outpatient (CLI) | payer MEDICARE, BC ==
--- NOTE | 2021-09-01 13:41 | MM ---
Reason for exam: additional evaluation requested from prior study. Last mammogram was performed 1 year ago. History: Patient is postmenopausal. Family history of breast cancer in aunt at age 60 and premenopausal breast cancer in cousin at age 45. Benign excisional biopsy of the right breast, 2020. Benign left US cyst aspiration of the left breast, July 27, 2006. Took estrogen for 5 years 5 months beginning at age 50. Physical Findings: Nurse did not find any significant physical abnormalities on exam. MG 3D Diag Mammo W/Cad PASHA Bilateral CC and MLO view(s) were taken. XCCL view(s) were taken of the left breast. Prior study comparison: August 20, 2020, bilateral MG 3d diag mammo w/cad PASHA. May 30, 2019, bilateral MG 3d diag mammo w/cad PASHA. The breast tissue is heterogeneously dense. This may lower the sensitivity of mammography. Increasing nodule lower inner quadrant 10cm from nipple and 10mm in size. This finding is changed when compared with previous exams. These results were verbally communicated with the patient and result sheet given to the patient on 09/01/21. ASSESSMENT: Incomplete: need additional imaging evaluation, BI-RAD 0 RECOMMENDATION: Ultrasound of the left breast.
--- NOTE | 2021-09-01 13:42 | USB ---
Reason for exam: additional evaluation requested from abnormal screening. History: Patient is postmenopausal. Family history of breast cancer in aunt at age 60 and premenopausal breast cancer in cousin at age 45. Benign excisional biopsy of the right breast, 2020. Benign left US cyst aspiration of the left breast, July 27, 2006. Took estrogen for 5 years 5 months beginning at age 50. US Breast Limited LT Left limited breast ultrasound including focal area of concern, retroareolar and axilla demonstrates a 0.9 x 0.5 x 0.5cm cystic lesion at 8 o'clock. These results were verbally communicated with the patient and result sheet given to the patient on 09/01/21. ASSESSMENT: Benign, BI-RAD 2 RECOMMENDATION: Routine screening mammogram of both breasts in 1 year.
== END | disposition home or self-care (01) ==
LOC: RADMAMWWP 10:43
PROVIDERS: ATTEND Family Medicine
DX: N63.24 Unspecified lump in the left breast, lower inner quadrant (principal); Z80.3 Family history of malignant neoplasm of breast
CPT/HCPCS: 77066; 76642; G0279; 77062

== ENCOUNTER → 2022-09-07 | Outpatient (CLI) | payer MEDICARE, BC ==
--- NOTE | 2022-09-07 11:33 | MM ---
Reason for Exam: Additional evaluation requested from prior study. Last screening mammogram was performed 12 month(s) ago. Patient History: Menarche at age 12. First Full-Term at age 21. Left ovary removed at age 38. Right ovary removed at age 38. Hysterectomy at age 38. Postmenopausal. Patient has history of breast feeding. Estrogen for 5 years, 5 months, from age 50 until age 55. 2020, Benign Excisional Biopsy on the right side. 07/27/2006, Benign Cyst Aspiration on the left side. Maternal cousin had breast cancer, age 45. Maternal aunt had breast cancer, age 60. Risk Values: Darya 5 year model risk: 2.0%. NCI Lifetime model risk: 5.9%. Prior Study Comparison: 05/17/2018 Right Diagnostic Mammogram, [facility]. 11/20/2018 Right Diagnostic Mammogram, [facility]. 05/30/2019 Bilateral Diagnostic Mammogram, [facility]. 08/20/2020 Bilateral Diagnostic Mammogram, [facility]. 09/01/2021 Bilateral Diagnostic Mammogram, [facility]. Tissue Density: The breast tissue is heterogeneously dense. This may lower the sensitivity of mammography. Findings: Analyzed By CAD. Pattern appears symmetrical and stable. Benign calcifications are present bilaterally. No suspicious spiculated or lobular masses, cluster microcalcifications, architectural distortion, or other secondary signs of malignancy are radiographically apparent. Overall Assessment: Benign, BI-RAD 2 Management: Screening Mammogram of both breasts in 1 year. A clinical breast exam by your physician is recommended on an annual basis and results should be correlated with mammographic findings. This exam should not preclude additional follow-up of suspicious palpable abnormalities. Results were given to the patient verbally at the time of exam. Electronically signed and approved by: Maurice Veras D.O. Radiologis
== END | disposition home or self-care (01) ==
LOC: RADMAMWWP 10:54
PROVIDERS: ATTEND Family Medicine
DX: R92.8 Other abnormal and inconclusive findings on diagnostic imaging of breast (principal)
CPT/HCPCS: 77066; G0279; 77062

== ENCOUNTER 2022-11-14 12:14 | Emergency (ER) | payer MEDICARE, BC ==
--- NOTE | 2022-11-14 12:37 | ED ---
General Adult HPI - General Source: patient, RN notes reviewed Mode of arrival: ambulatory Limitations: no limitations <Janusz Garcia - Last Filed: 11/14/22 12:36> - General Source: patient, RN notes reviewed Mode of arrival: ambulatory Limitations: no limitations <Rosa Santana - Last Filed: 11/18/22 19:16> - General Stated complaint: COVID+, weakness Time Seen by Provider: 11/14/22 12:36 - History of Present Illness Initial comments: 72-year-old female presents emergency Department with chief complaint of diarrhea, COVID-19. Patient states that she started a week ago with diarrhea states that she's having profuse diarrhea for several days she states on Monday she probably chest herself or COVID-19 which she was positive. She states the diarrhea has slowed up some but states that she is very thirsty, very weak feeling and states that she feels dehydrated. Patient states that she has no major complaints of chest pain shortness of breath. Patient did have some nausea associated with diarrhea. (Janusz Garcia) 72-year-old female presents to the emergency Department with complaints of generalized weakness. States she had 3 days of profuse diarrhea last week and has been feeling poorly since. States she did take a home Covid test and was positive on Monday, and again today. Patient is vaccinated. States she is now tolerating oral intake but lacks appetite and feels nauseous. States she is feeling weak and thinks she needs IV fluids. Reports history of hypokalemia. Has fibromyalgia and complains of generalized body aches. Denies fever, chills, headache, dizziness, chest pain, abdominal pain, vomiting, and dysuria. (Rosa Santana) - Related Data Home Medications Medication Instructions Recorded Confirmed ALPRAZolam [Xanax] 0.25 mg PO DAILY PRN 01/26/17 11/14/22 Atorvastatin [Lipitor] 40 mg PO HS 01/26/17 11/14/22 Prochlorperazine [Compazine] 5 mg PO BID PRN 01/26/17 11/14/22 Valsartan/Hydrochlorothiazide 1 tab PO DAILY 01/26/17 11/14/22 [Diovan Hct 160-12.5 mg Tab] Omeprazole 20 mg PO DAILY PRN 12/11/18 11/14/22 Aspirin [Adult Low Dose Aspirin EC] 81 mg PO DAILY 10/23/20 11/14/22 Brimonidine Tartrate/Timolol 1 drop BOTH EYES BID 10/23/20 11/14/22 [Combigan 0.2%-0.5% Eye Drops] Ergocalciferol [Vitamin D2] 50,000 unit PO SA 10/23/20 11/14/22 Hyoscyamine Sulfate [Levsin] 0.125 mg PO Q3H PRN 10/23/20 11/14/22 amLODIPine [Norvasc] 5 mg PO DAILY 10/23/20 11/14/22 Albuterol Inhaler [Ventolin Hfa 2 puff INHALATION RT-Q6H PRN 11/14/22 11/14/22 Inhaler] Allergies Allergy/AdvReac Type Severity Reaction Status Date / Time azithromycin Allergy Unknown Verified 11/14/22 17:26 duloxetine [From Cymbalta] Allergy Unknown Verified 11/14/22 17:26 eluxadoline [From Viberzi] Allergy Unknown Verified 11/14/22 17:26 erythromycin base Allergy Abdominal Verified 11/14/22 17:26 Pain levofloxacin [From Levaquin] Allergy Unknown Verified 11/14/22 17:26 Penicillins Allergy Rash/Hives/ Verified 11/14/22 17:26 itching/sigrid sea sulfamethoxazole Allergy Unknown Verified 11/14/22 17:26 [From Bactrim] trimethoprim [From Bactrim] Allergy Unknown Verified 11/14/22 17:26 Review of Systems ROS Other: All systems not noted in ROS Statement are negative. <Janusz Garcia - Last Filed: 11/14/22 12:36> ROS Other: All systems not noted in ROS Statement are negative. <Rosa Santana - Last Filed: 11/18/22 19:16> ROS Statement: Those systems with pertinent positive or pertinent negative responses have been documented in the HPI. Past Medical History Past Medical History: Chest Pain / Angina, Fibromyalgia, GERD/Reflux, Hyperlipidemia, Hypertension, Osteoarthritis (OA) Additional Past Medical History / Comment(s): migraines, IBS, History of Any Multi-Drug Resistant Organisms: None Reported Past Surgical History: Breast Surgery, Section, Cholecystectomy, H ysterectomy, Orthopedic Surgery Additional Past Surgical History / Comment(s): CARPAL TUNNEL, ACOUSTIC NEUROMA, RECTOCELE, LEFT BREAST BIOPSY, rt breast lumpectomy Past Anesthesia/Blood Transfusion Reactions: Motion Sickness, Postoperative Nausea & Vomiting (PONV) Additional Past Anesthesia/Blood Transfusion Reaction / Comment(s): claustrophobia, "anything on my face bothers me" Smoking Status: Never smoker - Past Family History Mother Family Medical History: Cancer <Janusz Garcia - Last Filed: 11/14/22 12:36> General Exam Limitations: no limitations (Well-developed, well-nourished female in no acute distress.) General appearance: alert, in no apparent distress Eye exam: Present: normal appearance. Absent: scleral icterus, conjunctival injection ENT exam: Present: mucous membranes dry Respiratory exam: Present: normal lung sounds bilaterally. Absent: respiratory distress, wheezes, rales, rhonchi, stridor Cardiovascular Exam: Present: regular rate, normal rhythm, normal heart sounds. Absent: systolic murmur, diastolic murmur, rubs, gallop, clicks GI/Abdominal exam: Present: soft, normal bowel sounds. Absent: distended, tenderness, guarding, rebound, rigid Extremities exam: Present: normal capillary refill, pedal edema Neurological exam: Present: alert, oriented X3, normal gait Psychiatric exam: Present: normal affect, normal mood Skin exam: Present: warm, dry, intact, normal color. Absent: rash <Rosa Santana - Last Filed: 11/18/22 19:16> Course <Rosa Santana - Last Filed: 11/18/22 19:16> Vital Signs 11/14/22 11/14/22 11/14/22 12:52 17:55 18:51 Temperature 98.3 F 99.2 F Pulse Rate 90 73 70 Respiratory 20 18 18 Rate Blood Pressure 135/80 141/75 127/70 O2 Sat by Pulse 95 96 95 Oximetry - Reevaluation(s) Reevaluation #1: 11/14/22 18:28 Upon reassessment, patient reports feeling significantly improved after IV fluids. Discussed discharge plan of care and patient is agreeable. (Rosa Santana) Medical Decision Making - Lab Data Result diagrams: 11/14/22 16:57 11/14/22 16:57 - EKG Data EKG shows normal: sinus rhythm Rate: normal <Rosa Santana - Last Filed: 11/18/22 19:16> - Medical Decision Making 72-year-old female with a past medical history of hypertension, fibromyalgia, and crit presents to the emergency department for evaluation of generalized weakness and diarrhea attributed to Covid 19. Upon exam, patient is well- appearing and in no acute distress. She was given a liter of IV fluids and Zofran. Laboratory studies were obtained indicating patient is slightly dehydrated. Troponin is negative. Patient feeling much improvement after fluids and Zofran. Patient will be discharged home with Zofran for nausea and encouragement to increase oral intake. Return parameters were discussed in detail. Patient verbalizes understanding and agrees with this plan. Attending: Manuel Was pt. sent in by a medical professional or institution? @ -No Did you speak to anyone other than the patient for history? @ -No Did you review nursing and triage notes? @ -Yes, agree Were old charts reviewed? @ -No Differential Diagnosis? @ -GI illness, URI, UTI this is not meant to be an exhaustive list EKG interpreted by me (3pts min.)? @ -EKG is interpreted by me shows normal sinus rhythm with incomplete right bundle branch. No significant ST elevation or depression. X-rays interpreted by me (1pt min.)? @ -Not applicable CT interpreted by me (1pt min.)? @ -Not applicable U/S interpreted by me (1pt. min.)? @ -Not applicable What testing was considered but not performed? (CT, X-rays, U/S, labs)? Why? @Urinalysis was considered, but not performed as patient has known source of infection. What meds were considered but not given? Why? @ -None Did you discuss the management of the patient with other professionals? @ -None Did you reconcile home meds? @ -No Was smoking cessation discussed for >3mins.? @ -No Was critical care preformed (if so, how long)? @ -No Were there social determinants of health that impacted care today? How? (Homelessness, low income, unemployed, alcoholism, drug addiction, transportation, low edu. Level, literacy, decrease access to med. care, penitentiary, rehab)? @ -No Was there de-escalation of care discussed even if they declined? (Discuss DNR or withdrawal of care, Hospice)? @ -No What co-morbidities impacted this encounter? (DM, HTN, Smoking, COPD, CAD, Cancer, CVA, Hep., AIDS, mental health diagnosis, sleep apnea, morbid obesity)? @ -Fibromyalgia Was patient admitted / discharged? @ -Discharged Undiagnosed new problem with uncertain prognosis? @ -None Drug Therapy requiring intensive monitoring for toxicity (Heparin, Nitro, Insulin, Cardizem)? @ -None Were any procedures done? @ -None Diagnosis/symptom? @ -Dehydration Acute, or Chronic, or Acute on Chronic? @ -Acute Uncomplicated (without systemic symptoms) or Complicated (systemic symptoms)? @ -Uncomplicated Side effects of treatment? @ -None Exacerbation, Progression, or Severe Exacerbation] @ -No Poses a threat to life or bodily function? @ -No Diagnosis/symptom? @ -Nausea Acute, or Chronic, or Acute on Chronic? @ -Acute Uncomplicated (without systemic symptoms) or Complicated (systemic symptoms)? @ -Uncomplicated Side effects of treatment? @ -None Exacerbation, Progression, or Severe Exacerbation] @ -No Poses a threat to life or bodily function? @ -No (Rosa Santana) - Lab Data Lab Results 11/14/22 11/14/22 11/14/22 Range/Units 16:57 16:57 16:57 WBC 8.4 (3.8-10.6) k/uL RBC 6.19 H (3.80-5.40) m/uL Hgb 16.2 H (11.4-16.0) gm/dL Hct 48.9 H (34.0-46.0) % MCV 78.9 L (80.0-100.0) fL MCH 26.2 (25.0-35.0) pg MCHC 33.2 (31.0-37.0) g/dL RDW 13.3 (11.5-15.5) % Plt Count 202 (150-450) k/uL MPV 7.8 Neutrophils % 47 % Lymphocytes % 41 % Monocytes % 9 % Eosinophils % 1 % Basophils % 1 % Neutrophils # 4.0 (1.3-7.7) k/uL Lymphocytes # 3.4 (1.0-4.8) k/uL Monocytes # 0.7 (0-1.0) k/uL Eosinophils # 0.0 (0-0.7) k/uL Basophils # 0.1 (0-0.2) k/uL Sodium 136 L (137-145) mmol/L Potassium 4.2 (3.5-5.1) mmol/L Chloride 96 L (98-107) mmol/L Carbon Dioxide 32 H (22-30) mmol/L Anion Gap 8 mmol/L BUN 28 H (7-17) mg/dL Creatinine 0.85 (0.52-1.04) mg/dL Est GFR (CKD-EPI)AfAm 80 (>60 ml/min/1.73 sqM) Est GFR (CKD-EPI)NonAf 69 (>60 ml/min/1.73 sqM) Glucose 125 H (74-99) mg/dL Calcium 9.9 (8.4-10.2) mg/dL Magnesium 2.0 (1.6-2.3) mg/dL Total Bilirubin 1.0 (0.2-1.3) mg/dL AST 45 H (14-36) U/L ALT 30 (4-34) U/L Alkaline Phosphatase 120 (38-126) U/L Troponin I <0.012 (0.000-0.034) ng/mL Total Protein 7.5 (6.3-8.2) g/dL Albumin 4.5 (3.5-5.0) g/dL Lipase 77 (23-300) U/L - EKG Data EKG Comments: EKG obtained at 1759 shows normal sinus rhythm with incomplete right bundle branch, possible right ventricular hypertrophy, and nonspecific ST and T wave ab normality. Ventricular rate 75, OK interval 176, QRS duration 102, QT/QTc 404/451. Rotation abnormal ECG. EKG compared to EKG obtained in 2019 showing no significant changes. I see no evidence of acute ischemic findings. (Rosa Santana) Disposition <Janusz Garcia - Last Filed: 11/14/22 12:36> Is patient prescribed a controlled substance at d/c from ED?: No Time of Disposition: 18:51 <Rosa Santana - Last Filed: 11/18/22 19:16> Clinical Impression: Dehydration, Nausea Disposition: HOME SELF-CARE Condition: Stable Instructions (If sedation given, give patient instructions): Dehydration (ED) Additional Instructions: Do your best to increase fluid intake. Consider electrolyte solution such as Gatorade or Powerade. Zofran is for nausea. Rest. Take it easy. BRAT diet (bananas, rice, applesauce, and toast). Follow-up with your PCP for a recheck this week. Return to the emergency department with any new, worsening, or concerning symptoms. Referrals: Blaire Adams MD [Primary Care Provider] - 1-2 days
[2022-11-14] MEDS ORDERED: SODIUM CHLORIDE 0.9% 1,000 ML IV STA (17:13)
[2022-11-14] MEDS ORDERED: ONDANSETRON 4 MG/2 ML VIAL IVP STA (17:13)
[2022-11-14 17:17] LABS: Basophils # (A) 0.1 k/uL (0-0.2); Basophils % (A) 1 %; Eosinophils % (A) 1 %; HCT 48.9 % (34.0-46.0); HGB 16.2 gm/dL (11.4-16.0); Lymphocytes # (A) 3.4 k/uL (1.0-4.8); Lymphocytes % (A) 41 %; MCH 26.2 pg (25.0-35.0); MCHC 33.2 g/dL (31.0-37.0); MCV 78.9 fL (80.0-100.0); Mean Platelet Volume 7.8; Monocytes # (A) 0.7 k/uL (0-1.0); Monocytes % (A) 9 %; Neutrophils % (A) 47 %; Platelet Count 202 k/uL (150-450); RBC 6.19 m/uL (3.80-5.40); RDW 13.3 % (11.5-15.5); WBC 8.4 k/uL (3.8-10.6)
[2022-11-14 17:25] LABS: Calcium 9.9 mg/dL (8.4-10.2)
[2022-11-14 17:27] LABS: Albumin 4.5 g/dL (3.5-5.0); Potassium 4.2 mmol/L (3.5-5.1); Total Protein 7.5 g/dL (6.3-8.2)
[2022-11-14] MEDS ORDERED: ONDANSETRON 4 MG ODT STARTER PACK 2 TAB BTL PO STA (18:29)
[2022-11-14 18:51] VITALS: BP 127/70; PULSE 70; RESP 18; TEMP 99.2
== END 2022-11-14 19:20 | disposition home or self-care (01) ==
LOC: EC 12:14
DX: E86.0 Dehydration (principal); R11.0 Nausea; I10 Essential (primary) hypertension; K21.9 Gastro-esophageal reflux disease without esophagitis; E78.5 Hyperlipidemia, unspecified; M19.90 Unspecified osteoarthritis, unspecified site; Z79.899 Other long term (current) drug therapy; Z79.82 Long term (current) use of aspirin; Z88.0 Allergy status to penicillin; Z88.2 Allergy status to sulfonamides; Z88.1 Allergy status to other antibiotic agents; Z88.8 Allergy status to other drugs, medicaments and biological substances
CPT/HCPCS: 36415; 93005; 80053; 83690; 83735; 84484; 85025; 99285; 96374; 96361; J2405; S0119

== ENCOUNTER → 2023-09-11 | Outpatient (CLI) | payer MEDICARE, BC ==
--- NOTE | 2023-09-18 14:58 | MM ---
Reason for Exam: Additional evaluation requested from prior study. Last screening mammogram was performed 12 month(s) ago. Patient History: Menarche at age 12. First Full-Term at age 21. Left ovary removed at age 38. Right ovary removed at age 38. Hysterectomy at age 38. Postmenopausal. Patient has history of breast feeding. Estrogen for 5 years, 5 months, from age 50 until age 55. 2020, Benign Excisional Biopsy on the right side. 07/27/2006, Benign Cyst Aspiration on the left side. Paternal cousin had breast cancer, age 45. Maternal aunt had breast cancer, age 60. Risk Values: Darya 5 year model risk: 2.0%. NCI Lifetime model risk: 5.6%. Prior Study Comparison: 01/09/2017 Bilateral Diagnostic Mammogram, [facility]. 05/14/2018 Bilateral Screening Mammogram, [facility]. 05/17/2018 Right Diagnostic Mammogram, [facility]. 05/17/2018 Right Diagnostic Ultrasound, [facility]. 11/20/2018 Right Diagnostic Mammogram, [facility]. 05/30/2019 Bilateral Diagnostic Mammogram, [facility]. 08/20/2020 Bilateral Diagnostic Mammogram, [facility]. 09/01/2021 Bilateral Diagnostic Mammogram, [facility]. 09/01/2021 Left Diagnostic Ultrasound, [facility]. 09/07/2022 Bilateral MG 3D diag mammo w/cad PASHA, [facility]. Tissue Density: There are scattered fibroglandular densities. Findings: Analyzed By CAD. Benign-appearing calcifications bilaterally. Left breast biopsy clip. No new suspicious masses, calcifications or distortions. Overall Assessment: Benign, BI-RAD 2 Management: Screening Mammogram of both breasts in 1 year. Results were given to the patient verbally at the time of exam. Patient should continue monthly self-breast exams. A clinical breast exam by your physician is recommended on an annual basis. This exam should not preclude additional follow-up of suspicious palpable abnormalities. Note on Darya scores and lifetime risk: 1. A Darya score greater than 3% is considered moderate risk. If this is the case, consider specialist referral to assess eligibility for a risk reducing agent. 2. If overall lifetime risk for the development of breast cancer is 20% or higher, the patient may qualify for future screening with alternating mammogram and breast MRI. Electronically signed and approved by: Lico Krause DO
== END | disposition home or self-care (01) ==
LOC: RADMAMWWP 14:11
PROVIDERS: ATTEND Family Medicine
DX: R92.323 Mammographic fibroglandular density, bilateral breasts (principal); Z80.3 Family history of malignant neoplasm of breast; Z78.0 Asymptomatic menopausal state
CPT/HCPCS: 77066; G0279; 77062

== ENCOUNTER → 2024-09-12 | Outpatient (CLI) | payer MEDICARE, BC ==
--- NOTE | 2024-09-12 10:52 | MM ---
Reason for Exam: Hx of benign breast biopsy. Last screening mammogram was performed 12 month(s) ago. Patient History: Menarche at age 12. First Full-Term at age 21. Left ovary removed at age 38. Right ovary removed at age 38. Hysterectomy at age 38. Postmenopausal. Patient has history of breast feeding. Estrogen for 5 years, 5 months, from age 50 until age 55. 2020, Benign Excisional Biopsy on the right side. 07/27/2006, Benign Cyst Aspiration on the left side. Paternal cousin had breast cancer, age 45. Maternal aunt had breast cancer, age 60. Risk Values: Darya 5 year model risk: 2.0%. NCI Lifetime model risk: 5.3%. Tissue Density: The breasts are heterogeneously dense, which may obscure small masses. Findings: Analyzed By CAD. Areas of bilateral asymmetric density are unchanged. A few scattered benign oil cyst calcifications bilaterally. Microclip left breast from prior biopsy. No significant change from prior exams. Overall Assessment: Benign, BI-RAD 2 Management: Screening Mammogram of both breasts in 1 year. . Results were given to the patient verbally at the time of exam. Patient should continue monthly self-breast exams. A clinical breast exam by your physician is recommended on an annual basis. This exam should not preclude additional follow-up of suspicious palpable abnormalities. Note on Darya scores and lifetime risk: 1. A Darya score greater than 3% is considered moderate risk. If this is the case, consider specialist referral to assess eligibility for a risk reducing agent. 2. If overall lifetime risk for the development of breast cancer is 20% or higher, the patient may qualify for future screening with alternating mammogram and breast MRI. [facility], , 09/12/2024 10:49 AM. Electronically signed and approved by: Jamal Nick M.D. Radiologist
--- NOTE | 2024-09-12 17:02 | BD ---
EXAMINATION TYPE: Axial Bone Density DATE OF EXAM: 09/12/2024 CLINICAL HISTORY: 73 years old Female. ICD-10 CODE: Z78.0 ASYMPTOMATIC MENOPAUSAL STAT , Z78.0 Height: Weight: FRAX RISK QUESTIONS: Alcohol (3 or more units per day): no Family History (Parent hip fracture): no Glucocorticoids (More than 3mos): no (Ex: prednisone, prednisolone, methylprednisolone, dexamethasone, and hydrocortisone). History of Fracture in Adulthood: no Secondary Osteoporosis: 1. Type 1 Diabetes: no 2. Hyperthyroidism: no 3. Menopause before 45: yes 4. Malnutrition: no 5. Chronic liver disease: no Rheumatoid Arthritis: no Current Tobacco Use: no RISK FACTORS HISTORY OF: Hip Fracture (Right/Left): no Spine Fracture: no History of Wrist Fracture: no Surgery to Spine/Hip(right/left)/Wrist (right/left): no MEDICATIONS: Thyroid Medications: no Osteoporosis Medications:no EXAM MEASUREMENTS: Bone mineral densitometry was performed using the [employer] System. Bone mineral density as measured about the Lumbar spine is: ----- L1-L4(G/cm2): 0.959 T Score Values are as follows: ----- L1: -1.5 ----- L2: -2.0 ----- L3: -1.7 ----- L4: -2.3 ----- L1-L4: -1.8 Z Score Values are as follows: ----- L1: -0.1 ----- L2: -0.6 ----- L3: -0.4 ----- L4: -0.9 ----- L1-L4: -0.5 Baseline Study Bone mineral density about the R hip (g/cm2): 0.817 Bone mineral density about the L hip (g/cm2): 0.818 T Score values are as follows: -----R Neck: -1.8 -----L Neck: -1.7 -----R Total: -1.5 -----L Total: -1.5 Z Score values are as follows: -----R Neck: -0.2 -----L Neck: -0.2 -----R Total: -0.2 -----L Total: -0.2 Baseline Study FRAX%s: The graph provided illustrates a 11.6% chance for a major osteoporotic fx and a 2.4% chance f or the hips probability for fx in 10 years time. IMPRESSION: Osteopenia (T Score between -2.5 and -1). There is slightly increased risk of fracture and the patient may be considered for treatment. Re-Screen 2-5 years. NOTE: T-SCORE=SD OF THE YOUNG ADULT MEAN. [facility], , 09/12/2024 5:00 PM
== END | disposition home or self-care (01) ==
LOC: RADMAMWWP 10:23
PROVIDERS: ATTEND Family Medicine
CPT/HCPCS: 77062; 77066; 77080